=== PATIENT | female | born 1985 | race Caucasian/White ===

== ENCOUNTER 2016-05-15 09:56 | Inpatient (IN) | payer OTHER ==
[2016-05-15] VITALS (9 sets, daily range): BP systolic 108–127; RESP 18–20; TEMP 98; Ht 167.6 cm; Wt 65.8 kg
[~2016-05-15] VITALS: Ht 167.6 cm; Wt 65.8 kg
[2016-05-15] MEDS ORDERED: ACETAMINOPHEN 325 MG TAB PO PRN (10:10)
[2016-05-15] MEDS ORDERED: LIDOCAINE 1% 30 ML PF INFILTRATE ONE (10:10)
[2016-05-15] MEDS ORDERED: FAMOTIDINE 20 MG INJ IV PRN (10:10)
[2016-05-15] MEDS ORDERED: OXYTOCIN 15 UNITS/250 ML NS 250 ML IV SCH (10:10)
[2016-05-15] MEDS ORDERED: FAMOTIDINE 20 MG TAB PO PRN (10:10)
[2016-05-15] MEDS ORDERED: OXYTOCIN 15 UNITS/250 ML NS 15 UNITS in PART FILL PIGGYBACK 1 EA IV SCH ×2 (10:10→17:00)
[2016-05-15] MEDS ORDERED: ALU/MAG/SIM 30 ML UDC PO PRN (10:10)
[2016-05-15] MEDS ORDERED: PROMETHAZINE 25 MG/ML VIAL IV PRN (10:10)
[2016-05-15] MEDS ORDERED: CEFAZOLIN (LD/OB) 100 ML IV PRN (10:10)
[2016-05-15] MEDS ORDERED: TERBUTALINE 1 MG/ML VIAL SUBQ PRN (10:10)
[2016-05-15] MEDS ORDERED: ONDANSETRON 4 MG VIAL IV PRN (10:10)
[2016-05-15] MEDS ORDERED: METOCLOPRAMIDE 10 MG/2 ML VIAL IV PUSH PRN (10:10)
[2016-05-15] MEDS ORDERED: MORPHINE 5 MG/1 ML VIAL IV PRN (10:10)
[2016-05-15] MEDS ORDERED: LIDOCAINE 1% BUFFERED 1 ML SYR INTRADERM PRN (10:10)
[2016-05-15] MEDS: LACT RINGERS 1,000 ML IV SCH ×2 (11:16→16:30)
[2016-05-15] MEDS ORDERED: MAG HYDROX 30 ML UDC PO PRN (21:10)
[2016-05-15] MEDS: MISOPROSTOL 200 MCG TAB PO SCH ×2 (21:10→23:47)
[2016-05-15] MEDS ORDERED: ZOLPIDEM 5 MG TAB PO PRN (21:10)
[2016-05-15] MEDS ORDERED: MEASLES,MUMPS,RUBELLA VAC SUBQ.VACC ONE (21:10)
[2016-05-15] MEDS ORDERED: TDaP 0.5 ML VIAL IM.VACC ONE (21:10)
[2016-05-15] MEDS ORDERED: ASTRINGENT MED PADS 40'S TOPICAL PRN (21:10)
[2016-05-15] MEDS ORDERED: DERMOPLAST SPRAY TOPICAL PRN (21:10)
[2016-05-15] MEDS ORDERED: OXYTOCIN 15 UNITS/250 ML NS 250 ML IV ONE (21:10)
[2016-05-15] MEDS: Ibuprofen 600 MG TAB PO SCH (23:47)
[2016-05-16] MEDS ORDERED: MISOPROSTOL 100 MCG TAB ONE
[2016-05-16 01:32] VITALS: BP_SYST 93; RESP 16; TEMP 98.5
[2016-05-16 05:33] VITALS: BP_SYST 90; RESP 16; TEMP 97.8
[2016-05-16] MEDS: Ibuprofen 600 MG TAB PO SCH ×4 (05:43→23:20)
[2016-05-16] MEDS: DOCUSATE SOD 100 MG CAP PO SCH (08:57)
[2016-05-16 09:08] VITALS: BP_SYST 97; RESP 20; TEMP 97.4
[2016-05-16 13:26] VITALS: BP_SYST 104; RESP 18
[2016-05-16 16:39] VITALS: TEMP 98.3
[2016-05-17] MEDS: Ibuprofen 600 MG TAB PO SCH ×2 (05:37→11:18)
[2016-05-17 05:46] VITALS: BP_SYST 105; RESP 16; TEMP 98
[2016-05-17 09:16] VITALS: BP_SYST 106; RESP 16; TEMP 97.3
[2016-05-17] MEDS: DOCUSATE SOD 100 MG CAP PO SCH (09:27)
[2016-05-17 09:41] VITALS: BP_SYST 106; RESP 16; TEMP 97.3
== END 2016-05-17 12:39 | disposition home or self-care (01) | DRG 775 ==
LOC: LD 09:56 → OB 23:46
PROVIDERS: ADMIT Obstetrics & Gynecology Reproductive Endocrinology; ATTEND Obstetrics & Gynecology Reproductive Endocrinology
PROC: 10E0XZZ Delivery of Products of Conception, External Approach (ICD-10-PCS; principal; 2016-05-15)
PROC: 0KQM0ZZ Repair Perineum Muscle, Open Approach (ICD-10-PCS; 2016-05-15)
PROC: 3E033VJ Introduction of Other Hormone into Peripheral Vein, Percutaneous Approach (ICD-10-PCS; 2016-05-15)
PROC: 10907ZC Drainage of Amniotic Fluid, Therapeutic from Products of Conception, Via Natural or Artificial Opening (ICD-10-PCS; 2016-05-15)
DX: O48.0 Post-term pregnancy (principal); O24.420 Gestational diabetes mellitus in childbirth, diet controlled; Z3A.41 41 weeks gestation of pregnancy; Z37.0 Single live birth; O70.1 Second degree perineal laceration during delivery
CPT/HCPCS: 85025